=== PATIENT | male | born 1970 | race Caucasian/White ===

== ENCOUNTER 2017-10-17 19:07 | Emergency (ER) | payer OTHER ==
[~2017-10-17] VITALS: Ht 172.7 cm; Wt 81.5 kg
[2017-10-17 19:13] VITALS: TEMP 36.9; Ht 172.7 cm; Wt 81.5 kg
[2017-10-17] MEDS ORDERED: SODIUM CHLORIDE 0.9% 1000ML 1,000 ML IV STA (19:24)
--- NOTE | 2017-10-17 19:28 | EMERGENCY ROOM VISIT NOTE ---
History Report prepared by Jann: Virginie Fuchs Under the Supervision of: Alexandra WaltersO. First contact with patient: 19:17 Chief Complaint: ABDOMINAL PAIN Stated Complaint: STOMACH PAIN History of Present Illness The patient is a 46 year old male who presents to the Emergency Room with complaints of intermittent sharp pain in left abdomen since October 15, 2017. He notes that he developed the pain after eating dinner. He reports having diarrhea that same night. He notes after working out the next day he developed a cramping pain in his left side. He notes that he went home and drank two bottles of water, ate crackers, and used a heating pad to try and alleviate the pain, he notes it was mildly relieving. He skipped his workout this morning. He went to work today. He went to urgent care today and advised him to come to the ED for concern of diverticulitis. He notes fevers and nausea. He denies any chills, vomiting, urinary symptoms, black or bloody stools. Source of History: patient Onset: October 15, 2017 Position: abdomen (left side) Quality: sharp Timing: intermittent Modifying Factors (Relieving): other (heat pad) Associated Symptoms: + fevers, + nausea, + diarrhea, No chills, No vomiting , No melena, No hematochezia, No urinary symptoms Review of Systems See HPI for pertinent positives & negatives. A total of 10 systems reviewed and were otherwise negative. Past Medical & Surgical Medical Problems: (1) No Known Active Medical Problems Family History Cancer Social History Smoking Status: Never Smoker Smokeless Tobacco Use: No Alcohol Use: none Drug Use: none Marital Status: Housing Status: lives with significant other Occupation Status: employed Current/Historical Medications Scheduled Ciprofloxacin Hcl (Cipro), 500 MG PO BID Metronidazole (Flagyl), 500 MG PO TID Allergies Uncoded Allergies: N (Allergy, Unknown, 07/24/02) NKDA (Allergy, Unknown, 07/24/02) Physical Exam Vital Signs Date Time Temp Pulse Resp B/P (MAP) Pulse Ox O2 Delivery O2 Flow Rate FiO2 10/17/17 20:43 78 18 148/93 97 10/17/17 19:13 36.9 90 18 144/79 96 Room Air Physical Exam GENERAL: Patient is awake, alert, and in no acute distress. Patient is resting comfortably and showing no signs of anxiety EYES: The conjunctivae are clear. The pupils are round and reactive. EARS, NOSE, MOUTH AND THROAT: The nose is without any evidence of any deformity. Mucous membranes are moist tongue is midline NECK: The neck is nontender and supple. RESPIRATORY: Normal respiratory effort is noted there is no evidence of wheezing rhonchi or rales CARDIOVASCULAR: Regular rate and rhythm noted there no murmurs rubs or gallops normal S1 normal S2 GASTROINTESTINAL: The abdomen is soft. Bowel sounds are present in all quadrants. Abdomen is mildly distended and LLQ tenderness to palpation BACK: No midline tenderness or or step-off noted range of motion in flexion extension as well as rotation no signs of muscle spasm noted MUSCULOSKELETAL/EXTREMITIES: There is no evidence of gross deformity full range of motion is noted in the hips and shoulders SKIN: There is no obvious evidence of any rash. There are no petechiae, pallor or cyanosis noted. NEUROLOGIC: Patient is awake alert and oriented x3. Medical Decision & Procedures ER Provider Diagnostic Interpretation: Radiology results as stated below per my review and radiologist interpretation: ABD/PELVIS NO IV OR ORAL CONT CLINICAL HISTORY: 46 years-old Male presenting with LLQ pain,, stomach cramps, diarrhea, concern for diverticulitis, history of hernia surgeries R/O diverticulitis. TECHNIQUE: Multidetector CT of the abdomen and pelvis was performed without the use of intravenous contrast. IV contrast: None. A dose lowering technique was used consistent with the principles of ALARA (as low as reasonably achievable). COMPARISON: None. CT DOSE (mGy.cm): The estimated cumulative dose is 389.41 mGy.cm. 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 Lung bases: Minimal basilar opacities, likely atelectasis. Normal heart size. No pericardial or pleural effusion. Liver: Normal morphology. Normal density. Biliary: No gross biliary ductal dilatation allowing for noncontrast technique. Gallbladder decompressed. Pancreas: Normal noncontrast appearance. Spleen: Normal noncontrast appearance. Adrenal glands: Normal noncontrast appearance. Kidneys and ureters: Normal noncontrast appearance. No nephrolithiasis. No hydronephrosis. Normal ureters. Bladder: Normal noncontrast appearance. Pelvic organs: Normal noncontrast appearance. Bowel: Diverticulosis of the sigmoid and descending colon with significant wall thickening and pericolonic fat stranding at the distal descending colon with associated peritoneal thickening and trace left paracolic fluid. No convincing evidence of abscess. No extraluminal gas. Scattered diverticula noted in the remainder of the colon. The appendix is normal. No bowel obstruction. Peritoneal cavity: No free fluid or intraperitoneal gas. Lymph nodes: No gross lymphadenopathy allowing for noncontrast technique. Vasculature: Atherosclerosis of the normal caliber abdominal aorta. Abdominal wall: Infiltration of the proximal ring of the left inguinal canal secondary to adjacent inflammatory change. Musculoskeletal: Transitional lumbosacral anatomy of L5.. IMPRESSION: 1. Findings consistent with acute uncomplicated diverticulitis of the distal descending colon. No CT evidence of extraluminal gas or abscess. Electronically signed by: Tal Ojeda M.D. 10/17/2017 8:01 PM Dictated Date/Time: 10/17/2017 7:55 PM Laboratory Results 10/17/17 19:36 Red Blood Count 5.21, Mean Corpuscular Volume 82.9, Mean Corpuscular Hemoglobin 28.8, Mean Corpuscular Hemoglobin Concent 34.7, Mean Platelet Volume 9.2, Neutrophils (%) (Auto) 71.2, Lymphocytes (%) (Auto) 16.9, Monocytes (%) (Auto) 10.7, Eosinophils (%) (Auto) 0.7, Basophils (%) (Auto) 0.2, Neutrophils # (Auto ) 8.29, Lymphocytes # (Auto) 1.97, Monocytes # (Auto) 1.25, Eosinophils # (Auto ) 0.08, Basophils # (Auto) 0.02 10/17/17 19:36 Test 10/17/17 19:36 White Blood Count 11.64 K/uL (4.8-10.8) Red Blood Count 5.21 M/uL (4.7-6.1) Hemoglobin 15.0 g/dL (14.0-18.0) Hematocrit 43.2 % (42-52) Mean Corpuscular Volume 82.9 fL (80-100) Mean Corpuscular Hemoglobin 28.8 pg (25-34) Mean Corpuscular Hemoglobin Concent 34.7 g/dl (32-36) Platelet Count 257 K/uL (130-400) Mean Platelet Volume 9.2 fL (7.4-10.4) Neutrophils (%) (Auto) 71.2 % Lymphocytes (%) (Auto) 16.9 % Monocytes (%) (Auto) 10.7 % Eosinophils (%) (Auto) 0.7 % Basophils (%) (Auto) 0.2 % Neutrophils # (Auto) 8.29 K/uL (1.4-6.5) Lymphocytes # (Auto) 1.97 K/uL (1.2-3.4) Monocytes # (Auto) 1.25 K/uL (0.11-0.59) Eosinophils # (Auto) 0.08 K/uL (0-0.5) Basophils # (Auto) 0.02 K/uL (0-0.2) RDW Standard Deviation 41.5 fL (36.4-46.3) RDW Coefficient of Variation 13.7 % (11.5-14.5) Immature Granulocyte % (Auto) 0.3 % Immature Granulocyte # (Auto) 0.03 K/uL (0.00-0.02) Anion Gap 7.0 mmol/L (3-11) Est Creatinine Clear Calc Drug Dose 74.9 ml/min Estimated GFR () 84.7 Estimated GFR (Non- 73.0 BUN/Creatinine Ratio 11.9 (10-20) Calcium Level 9.3 mg/dl (8.5-10.1) Total Bilirubin 0.6 mg/dl (0.2-1) Direct Bilirubin mg/dl (0-0.2) Aspartate Amino Transf (AST/SGOT) 36 U/L (15-37) Alanine Aminotransferase (ALT/SGPT) 47 U/L (12-78) Alkaline Phosphatase 87 U/L (45-117) Total Protein 8.0 gm/dl (6.4-8.2) Albumin 4.2 gm/dl (3.4-5.0) Lipase 144 U/L (73-393) Chemistry Specimen Hemolysis Laboratory results per my review. Medications Administered Medications (Trade) Dose Ordered Sig/Carrie Route Start Time Stop Time Status Last Admin Dose Admin Sodium Chloride 1,000 ml @ 999 mls/hr Q1H1M STAT IV 10/17/17 19:24 10/17/17 20:24 DC 10/17/17 20:06 999 MLS/HR Ciprofloxacin (Cipro 500MG Home Pack) 1 homepack UD ONCE PO 10/17/17 20:15 10/17/17 20:16 DC 10/17/17 20:36 1 [facility] ED Course 1919: The patient was evaluated in room C5. A complete history and physical examination were performed. 1923: Ordered NSS 1,000 ml @ 999 mls/hr IV 2009: I reassessed the patient at this time. I discussed the results and treatment plan with the patient. I answered all pertaining questions that he had. He expressed understanding and verbalized agreement. The patient will be discharged home. 2014: Ordered Cipro 1 homepa PO Medical Decision Prior records/ancillary studies reviewed. Triage Nursing notes reviewed. The patient's history was concerning for abdominal pain. Differential diagnosis: Etiologies such as appendicitis, diverticulitis, PUD, biliary pathology, UTI, pancreatitis, obstruction, mesenteric ischemia, aortic pathology, infections, inflammatory bowel disease, renal colic, as well as others were entertained. The patient is a 46-year-old male who presented to the emergency department for an evaluation of left-sided abdominal pain. The patient had ongoing symptoms for the last few days. His physical exam and history appear to be consistent with diverticulitis. He was seen at the clinic in [place] and was felt to have a presentation consistent with diverticulitis. For this reason he was sent to the emergency department for further evaluation. The patient's CAT scan revealed diverticulitis. He was treated with IV fluids as well as antibiotics. He was encouraged to continue all medications as prescribed and follow-up with his primary care physician for further evaluation and possible gastroenterology referral. He was also encouraged to continue using Tylenol for pain but return to the emergency department immediately if symptoms change worsen or the need arises. Medication Reconcilliation Current Medication List: was personally reviewed by me Blood Pressure Screening Patient's blood pressure: Elevated blood pressure Blood pressure disposition: Referred to PCP Impression Primary Impression: LLQ abdominal pain Additional Impression: Diverticulitis Scribe Attestation The scribe's documentation has been prepared under my direction and personally reviewed by me in its entirety. I confirm that the note above accurately reflects all work, treatment, procedures, and medical decision making performed by me. Departure Information Dispostion Home / Self-Care Prescriptions Metronidazole (FLAGYL) 500 Mg Tab 500 MG PO TID, #30 TAB Prov: Danie Martel, DO 10/17/17 Ciprofloxacin Hcl (CIPRO) 500 Mg Tab 500 MG PO BID, #20 TAB Prov: Danie Martel, DO 10/17/17 Referrals Kody Meyers M.D. Forms Call Back Authorization, HOME CARE DOCUMENTATION FORM, IMPORTANT VISIT INFORMATION Patient Instructions Diverticulosis Diverticulitis, My [facility] Additional Instructions Call your doctor to schedule a follow-up appointment. Continue all medications as prescribed. Continue using Motrin and Tylenol as directed for pain. Return the emergency department immediately if symptoms change worsen or the need arises. Specifically if he develop severe pain high fever rigid abdomen or if any other worrisome symptoms develop. Problem Qualifiers
[2017-10-17 19:55] LABS: BASO % 0.2 %; BASO ABS # 0.02 K/uL (0-0.2); EOS % 0.7 %; EOS ABS # 0.08 K/uL (0-0.5); HEMATOCRIT 43.2 % (42-52); IG# 0.03 K/uL (0.00-0.02); LYMPH % 16.9 %; LYMPH ABS # 1.97 K/uL (1.2-3.4); MEAN CELL VOLUME 82.9 fL (80-100); MEAN CORPUSCULAR HEMOGLOBIN 28.8 pg (25-34); MEAN CORPUSCULAR HGB CONC 34.7 g/dl (32-36); MEAN PLATELET VOLUME 9.2 fL (7.4-10.4); MONO % 10.7 %; MONO ABS # 1.25 K/uL (0.11-0.59); NEUT % 71.2 %; NEUT ABS # 8.29 K/uL (1.4-6.5); PLATELET COUNT 257 K/uL (130-400); RED CELL DISTRIBUTION WIDTH CV 13.7 % (11.5-14.5); RED CELL DISTRIBUTION WIDTH SD 41.5 fL (36.4-46.3); WHITE BLOOD COUNT 11.64 K/uL (4.8-10.8)
--- NOTE | 2017-10-17 20:03 | DIAGNOSTIC IMAGING REPORT ---
ABD/PELVIS NO IV OR ORAL CONT CLINICAL HISTORY: 46 years-old Male presenting with LLQ pain,, stomach cramps, diarrhea, concern for diverticulitis, history of hernia surgeries R/O diverticulitis. TECHNIQUE: Multidetector CT of the abdomen and pelvis was performed without the use of intravenous contrast. IV contrast: None. A dose lowering technique was used consistent with the principles of ALARA (as low as reasonably achievable). COMPARISON: None. CT DOSE (mGy.cm): The estimated cumulative dose is 389.41 mGy.cm. 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 Lung bases: Minimal basilar opacities, likely atelectasis. Normal heart size. No pericardial or pleural effusion. Liver: Normal morphology. Normal density. Biliary: No gross biliary ductal dilatation allowing for noncontrast technique. Gallbladder decompressed. Pancreas: Normal noncontrast appearance. Spleen: Normal noncontrast appearance. Adrenal glands: Normal noncontrast appearance. Kidneys and ureters: Normal noncontrast appearance. No nephrolithiasis. No hydronephrosis. Normal ureters. Bladder: Normal noncontrast appearance. Pelvic organs: Normal noncontrast appearance. Bowel: Diverticulosis of the sigmoid and descending colon with significant wall thickening and pericolonic fat stranding at the distal descending colon with associated peritoneal thickening and trace left paracolic fluid. No convincing evidence of abscess. No extraluminal gas. Scattered diverticula noted in the remainder of the colon. The appendix is normal. No bowel obstruction. Peritoneal cavity: No free fluid or intraperitoneal gas. Lymph nodes: No gross lymphadenopathy allowing for noncontrast technique. Vasculature: Atherosclerosis of the normal caliber abdominal aorta. Abdominal wall: Infiltration of the proximal ring of the left inguinal canal secondary to adjacent inflammatory change. Musculoskeletal: Transitional lumbosacral anatomy of L5.. IMPRESSION: 1. Findings consistent with acute uncomplicated diverticulitis of the distal descending colon. No CT evidence of extraluminal gas or abscess. Electronically signed by: Tal Ojeda M.D. 10/17/2017 8:01 PM Dictated Date/Time: 10/17/2017 7:55 PM
[2017-10-17] MEDS ORDERED: CIPROFLOXACIN 500MG HOME PACK PO ONE (20:15)
[2017-10-17] MEDS ORDERED: CIPR-255 PO (20:15)
[2017-10-17] MEDS ORDERED: METR-162 PO (20:15)
[2017-10-17 20:25] LABS: ALBUMIN 4.2 gm/dl (3.4-5.0); CALCIUM 9.3 mg/dl (8.5-10.1); CREATININE 1.18 mg/dl (0.60-1.40); POTASSIUM 4.2 mmol/L (3.5-5.1)
[2017-10-17 20:43] VITALS: BP 148/93; PULSE 78; O2SAT 97
== END 2017-10-17 20:45 | disposition home or self-care (01) ==
LOC: C.EDB 19:08 → C.EDC 20:45
DX: R10.32 Left lower quadrant pain (principal); K57.92 Diverticulitis of intestine, part unspecified, without perforation or abscess without bleeding